=== PATIENT | female | born 1980 | race American Indian/Alaskan Native ===

== ENCOUNTER 2019-07-26 13:31 | Emergency (ER) | payer BC, OTHER ==
[2019-07-26 13:46] VITALS: BP 119/76; PULSE 101
--- NOTE | 2019-07-26 14:11 | EDM.PDOC ---
ED HPI GENERAL MEDICAL PROBLEM - General Chief Complaint: Genitourinary Problem Stated Complaint: VAGINAL DISCOMFORT Time Seen by Provider: 07/26/19 13:47 Source of Information: Reports: Patient, RN Notes Reviewed History Limitations: Reports: No Limitations - History of Present Illness INITIAL COMMENTS - FREE TEXT/NARRATIVE: Patient is a 39-year-old female who presents to the ED for the evaluation of ongoing vaginal discomfort status post partial hysterectomy in May. The patient states that she had her uterus and fallopian tubes taken out in [facility] on May 30, as she had a follow-up with her SVP that did the surgery on July 01, and they cleared her for weight lifting restrictions and sexual intercourse. They did however tell her that she still had some sutures intact, but thought that they should be dissolving. She states that she does not th think that the sutures have dissolved, she states that she has only had sexual intercourse with her twice since then, she states that she can still feel the sutures, and she states that he said that he could feel the sutures when they are having sexual intercourse as well. She is denying any pain with sexual intercourse, she states that she is having some pink discharge however, and she states that she is having some difficulties with passing urine, she states that she does not feel like she is emptying her bladder completely. She states when she does urinate, there is a deep burn or ache in her lower abdomen , and she also states that she feels some pain into her low back as well. She states it is somewhat painful to sit. She notes some tenderness on her abdominal wall, the right lower side. The patient states that today she felt chilled, however she does not believe she is had any fever, she denies any chest pain or shortness of breath, or any nausea or vomiting or diarrhea. Her last bowel movement that was normal for herself was last night. Patient states that movement makes the abdominal wall tenderness worse, she says sneezing also aggravates this. She has not noticed anything that necessarily makes it better. Treatments TERRITORY REPRESENTATIVE: Reports: Other (see below) Other Treatments TERRITORY REPRESENTATIVE: motrin,tylenol, cranberry juice Vaginal Pain Score (Numeric/FACES): 7 - Related Data Allergies Allergy/AdvReac Type Severity Reaction Status Date / Time No Known Allergies Allergy Verified 01/23/19 13:58 Home Meds: Home Meds Fluconazole [Diflucan] 150 mg PO ONETIME #1 tab 07/26/19 [Rx] Mv-Min/Iron/Folic/Calcium/Vitk [Women's Multivitamin Tablet] 1 tab PO DAILY [History] cephALEXin [Cephalexin] 500 mg PO Q6H #30 capsule 07/26/19 [Rx] Past Medical History Genitourinary History: Reports: UTI, Recurrent SVP History: Reports: Musculoskeletal History: Reports: Arthritis, Other (See Below) Other Musculoskeletal History: arthritis L) toe. Neurological History: Reports: Other (See Below) Other Neuro History: Davis's Palsy Hematologic History: Reports: Anemia, Other (See Below) Other Hematologic History: "I get low on iron when I get my period." - Infectious Disease History Infectious Disease History: Reports: Chicken Pox - Past Surgical History HEENT Surgical History: Reports: Oral Surgery Female Surgical History: Reports: Hysterectomy (laparoscopic partial hyst, still retains ovaries 05/30) Social & Family History - Family History Family Medical History: Noncontributory - Tobacco Use Smoking Status *Q: Never Smoker - Caffeine Use Caffeine Use: Reports: Coffee - Recreational Drug Use Recreational Drug Use: No ED ROS GENERAL - Review of Systems Review Of Systems: See Below Constitutional: Reports: Chills. Denies: Fever Respiratory: Denies: Shortness of Breath, Cough Cardiovascular: Denies: Chest Pain GI/Abdominal: Reports: Abdominal Pain (RLQ). Denies: Constipation, Diarrhea, Nausea, Vomiting : Reports: Discharge (pink tinged discharge), Dysuria (deep burn when starting urination. pain into low back as well), Urinary Retention (feels as if she is not emptying appropriately) Skin: Reports: Wound (laparscopic wounds appear to be healing normally). Denies : Erythema ED EXAM, RENAL/ - Physical Exam Exam: See Below Exam Limited By: No Limitations General Appearance: Alert, WD/WN, No Apparent Distress Eye Exam: Bilateral Eye: EOMI, Normal Inspection, PERRL Throat/Mouth: Normal Inspection, Normal Lips, Normal Teeth, Normal Gums, Normal Oropharynx, Normal Voice, No Airway Compromise Head: Atraumatic, Normocephalic Neck: Normal Inspection Respiratory/Chest: No Respiratory Distress, Lungs Clear, Normal Breath Sounds, No Accessory Muscle Use, Chest Non-Tender Cardiovascular: Normal Peripheral Pulses, Regular Rate, Rhythm, No Murmur GI/Abdominal: Normal Bowel Sounds, Soft, No Organomegaly, No Distention, No Mass , Rebound (RLQ), Tender (RLQ) Extremities: Normal Inspection, Normal Capillary Refill Neurological: Alert, Oriented, Normal Cognition, No Motor/Sensory Deficits Psychiatric: Normal Affect, Normal Mood Skin Exam: Warm, Dry, Intact, Normal Color, No Rash, Wound/Incision (3 laparscopic wounds that looke to be healing appropriately. No erythema or tenderness or masses noted in these areas.) Course - Vital Signs Last Recorded V/S: Last Vital Signs Temp 98.8 F 07/26/19 13:46 Pulse 101 H 07/26/19 13:46 Resp 20 07/26/19 13:46 BP 119/76 07/26/19 13:46 Pulse Ox 96 07/26/19 13:46 - Orders/Labs/Meds Orders: Active Orders 24 hr Category Date Time Status Bladder Scan [RC] ASDIRECTED Care 07/26/19 13:47 Ordered Labs: Laboratory Tests 07/26/19 07/26/19 07/26/19 Range/Units 14:20 14:20 14:30 WBC 9.09 (3.98-10.04) K/mm3 RBC 4.81 (3.98-5.22) M/mm3 Hgb 13.3 (11.2-15.7) gm/dl Hct 39.6 (34.1-44.9) % MCV 82.3 D (79.4-94.8) fl MCH 27.7 (25.6-32.2) pg MCHC 33.6 (32.2-35.5) g/dl RDW Std Deviation 44.7 (36.4-46.3) fL Plt Count 160 L (182-369) K/mm3 MPV 11.6 (9.4-12.3) fl Neutrophils % (Manual) 74 H (40-60) % Band Neutrophils % 0 (0-10) % Lymphocytes % (Manual) 23 (20-40) % Atypical Lymphs % 0 % Monocytes % (Manual) 0 L (2-10) % Eosinophils % (Manual) 3 (0.7-5.8) % Basophils % (Manual) 0 L (0.1-1.2) Platelet Estimate Adequate RBC Morph Comment Normal Sodium 139 (136-145) mEq/L Potassium 3.8 (3.5-5.1) mEq/L Chloride 104 (98-107) mEq/L Carbon Dioxide 24 (21-32) mEq/L Anion Gap 14.8 (5-15) BUN 6 L (7-18) mg/dL Creatinine 0.8 (0.55-1.02) mg/dL Est Cr Clr Drug Dosing 77.33 mL/min Estimated GFR (MDRD) > 60 (>60) mL/min BUN/Creatinine Ratio 7.5 L (14-18) Glucose 106 (74-106) mg/dL Calcium 9.0 (8.5-10.1) mg/dL Total Bilirubin 0.6 (0.2-1.0) mg/dL AST 14 L (15-37) U/L ALT 18 (14-59) U/L Alkaline Phosphatase 88 (46-116) U/L Total Protein 7.8 (6.4-8.2) g/dl Albumin 3.6 (3.4-5.0) g/dl Globulin 4.2 gm/dL Albumin/Globulin Ratio 0.9 L (1-2) Urine Color Yellow (Yellow) Urine Appearance Clear (Clear) Urine pH 7.5 (5.0-8.0) Ur Specific [place] 1.020 (1.005-1.030) Urine Protein Negative (Negative) Urine Glucose (UA) Negative (Negative) Urine Ketones Negative (Negative) Urine Occult Blood 1+ H (Negative) Urine Nitrite Negative (Negative) Urine Bilirubin Negative (Negative) Urine Urobilinogen 0.2 (0.2-1.0) Ur Leukocyte Esterase 1+ H (Negative) Urine RBC 5-10 H (0-5) /hpf Urine WBC 5-10 H (0-5) /hpf Ur Squamous Epith Cells 0-5 (0-5) /hpf Urine Bacteria Few (FEW) /hpf Urine Mucus Few (FEW) /hpf - Re-Assessments/Exams Free Text/Narrative Re-Assessment/Exam: 07/26/19 14:23 Patient presents to the ED for evaluation of ongoing lower abdominal/vaginal discomfort. I have ordered a CBC and CMP, UA and a bladder scan for evaluation. She is tender in her right lower quadrant, she states she is not had any other abdominal surgery so she does still retains her appendix. After the post void residual bladder scan has been done, and the lab started to result , we will discuss the further need for any sort imaging, patient is okay with this plan at this time. 07/26/19 16:30 Patient's labs have come back, demonstrate no increased white count, urinalysis has 1+ leukocyte esterase, 5-10 white blood cells and 5-10 red blood cells. I will send this for culture for confirmation. Upon doing a vaginal exam, the patient does still have what I could feel to be 2 sutures on the anterior portion of her vagina, I do believe this is what is causing some of her discomfort. She did have quite a bit of grayish discharge coming from the vaginal vault as well. I did collect a sample for wet prep. We will likely call SVP to see if the sutures can be cut out, or how to manage this. Departure - Departure Time of Disposition: 17:31 Disposition: Home, Self-Care 01 Condition: Fair Clinical Impression: Vaginal discomfort - Discharge Information *PRESCRIPTION DRUG MONITORING PROGRAM REVIEWED*: No *COPY OF PRESCRIPTION DRUG MONITORING REPORT IN PATIENT WES: No Prescriptions: cephALEXin [Cephalexin] 500 mg PO Q6H #30 capsule Fluconazole [Diflucan] 150 mg PO ONETIME #1 tab Referrals: Tiffani Haskins PA-C [Primary Care Provider] - Forms: ED Department Discharge Additional Instructions: You were evaluated in the ER today regarding your vaginal discomfort. Laboratory evaluation was done today, and demonstrates that you placing you on Keflex 500 mg have no active bacterial infection, however I did speak with our SVP on-call, and he recommends every 6 hours until gone. This prescription was electronically prescribed to the [facility] pharmacy located in the [facility] [place]. You are also given a one-time dose of Diflucan, as you state you are prone to getting yeast infections when on antibiotics. The SVP further recommends that you abstain from sexual intercourse until you can be reevaluated by your SVP provider in [place]. He notes that the sutures should still dissolve on their own. But he strongly recommends that you follow-up with your provider for reevaluation, as he was the one that did the surgery, so he should know you the best. Please return to the ER at any time if your symptoms change or worsen. Sepsis Event Note - Evaluation Sepsis Screening Result: No Definite Risk - Focused Exam Vital Signs: Vital Signs Temp Pulse Resp BP Pulse Ox 07/26/19 13:46 98.8 F 101 H 20 119/76 96 Date Exam was Performed: 07/26/19 Time Exam was Performed: 17:31 - My Orders Last 24 Hours: My Active Orders 07/26/19 13:47 Bladder Scan [RC] ASDIRECTED - Assessment/Plan Last 24 Hours: My Active Orders 07/26/19 13:47 Bladder Scan [RC] ASDIRECTED
== END 2019-07-26 17:40 | disposition home or self-care (01) ==
LOC: JD.ED 13:31
DX: R10.2 Pelvic and perineal pain (principal); Z90.710 Acquired absence of both cervix and uterus
CPT/HCPCS: 36415; 51798; 80053; 81001; 85007; 85027; 87210; 87808; 99283

== ENCOUNTER 2021-02-12 20:19 | Emergency (ER) | payer OTHER ==
[2021-02-12 20:43] VITALS: BP 129/78; PULSE 68
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
== END 2021-02-12 21:45 | disposition home or self-care (01) ==
LOC: JD.ED 20:19
DX: S01.01XA Laceration without foreign body of scalp, initial encounter (principal); W22.09XA Striking against other stationary object, initial encounter
CPT/HCPCS: 99282

== ENCOUNTER 2021-10-29 20:39 | Emergency (ER) | payer OTHER ==
[2021-10-29 21:03] VITALS: BP 107/67; PULSE 79
[2021-10-29] MEDS ORDERED: Sodium Chloride 0.9% 10 ML Syringe FLUSH PRN (21:14)
[2021-10-29] MEDS ORDERED: Sodium Chloride 0.9% 1,000 ML IV STA (21:15)
[2021-10-29] MEDS ORDERED: Sodium Chloride 0.9% 10 ML Syringe FLUSH ONE (22:30)
[2021-10-29] MEDS ORDERED: Iopamidol 612 MG/ML 100 ML Bottle IVPUSH ONE (22:30)
== END 2021-10-29 23:22 | disposition home or self-care (01) ==
LOC: JD.ED 20:39
DX: R10.31 Right lower quadrant pain (principal)
CPT/HCPCS: 36415; 74177; 80053; 81001; 81025; 85025; 86140; 99284; J3490; J7030; Q9967